=== PATIENT | female | born 1970 | race Caucasian/White ===

== ENCOUNTER 2017-07-06 17:22 | Emergency (ER) | payer BC ==
[~2017-07-06] VITALS: Ht 160 cm; Wt 90.7 kg
[~2017-07-06 17:22] MED LIST: CLINDAMYCIN HC300 MG PO; MOBIC7.5 MG PO; NEURONTIN100 MG PO; NKHM PO; PERCOCET 325 MG1 TA2 PO; PERCOCET 325 MG1 TA5 PO; TRAMADOL HCL50 MG PO
[2017-07-06] MEDS ORDERED: VITAMIN D5000 UNIT PO (17:32)
[2017-07-06] MEDS ORDERED: OXYBUTYNIN5 MG PO (17:32)
[2017-07-06] MEDS ORDERED: CLINDAMYCIN150 MG PO (17:39)
[2017-07-06] MEDS ORDERED: NAPROSYN500 MG PO (17:39)
== END 2017-07-06 18:51 | disposition home or self-care (01) ==
LOC: ED 17:22
DX: S61.432A Puncture wound without foreign body of left hand, initial encounter (principal); S60.222A Contusion of left hand, initial encounter; R03.0 Elevated blood-pressure reading, without diagnosis of hypertension; F10.10 Alcohol abuse, uncomplicated; Z79.899 Other long term (current) drug therapy; Y99.8 Other external cause status; Z98.51 Tubal ligation status; Z88.0 Allergy status to penicillin; Z88.2 Allergy status to sulfonamides; X58.XXXA Exposure to other specified factors, initial encounter; Y93.89 Activity, other specified; Y92.89 Other specified places as the place of occurrence of the external cause

== ENCOUNTER → 2017-12-06 | Outpatient (CLI) | payer BC ==
[~2017-12-06] MED LIST changes: +CLINDAMYCIN150 MG PO; +NAPROSYN500 MG PO; +OXYBUTYNIN5 MG PO; +VITAMIN D5000 UNIT PO
== END | disposition home or self-care (01) ==
LOC: MAMMO 02:50
DX: Z12.31 Encounter for screening mammogram for malignant neoplasm of breast (principal)

== ENCOUNTER 2018-02-09 13:30 | Emergency (ER) | payer BC ==
[~2018-02-09] VITALS: Wt 98.4 kg
[~2018-02-09 13:30] MED LIST changes: +PRILOSEC20 M1 PO
[2018-02-09] MEDS ORDERED: IBU800 MG PO (15:11)
== END 2018-02-09 14:42 | disposition home or self-care (01) ==
LOC: ED 13:30
DX: S93.402A Sprain of unspecified ligament of left ankle, initial encounter (principal); E66.9 Obesity, unspecified; Z98.51 Tubal ligation status; Z79.899 Other long term (current) drug therapy; Z88.0 Allergy status to penicillin; Z88.2 Allergy status to sulfonamides; W17.2XXA Fall into hole, initial encounter; Y93.89 Activity, other specified; Y92.89 Other specified places as the place of occurrence of the external cause; Y99.9 Unspecified external cause status

== ENCOUNTER → 2018-08-29 | Outpatient (CLI) | payer BC ==
[~2018-08-29] MED LIST changes: +DETROL LA2 MG PO; +IBU800 MG PO; +LEVAQUIN750 M1 PO; +PROTONIX40 MG PO; +TAMIFLU 75MG CA75 MG PO
== END | disposition home or self-care (01) ==
LOC: RAD 09:34
DX: M25.612 Stiffness of left shoulder, not elsewhere classified (principal); R53.83 Other fatigue; R11.0 Nausea; R19.7 Diarrhea, unspecified

== ENCOUNTER → 2018-09-16 | Outpatient (CLI) | payer BC | END | disposition home or self-care (01) | LOC: NM 09-11 10:00 | DX: M25.512 Pain in left shoulder (principal); M85.88 Other specified disorders of bone density and structure, other site ==

== ENCOUNTER → 2019-03-21 | Outpatient (CLI) | payer BC | END | disposition home or self-care (01) | LOC: RAD 07:39 | DX: K21.9 Gastro-esophageal reflux disease without esophagitis (principal) ==

== ENCOUNTER → 2020-05-10 | Outpatient (CLI) | payer BC | END | disposition home or self-care (01) | LOC: MAMMO 09:07 | PROVIDERS: ATTEND Nurse Practitioner Family | DX: Z12.31 Encounter for screening mammogram for malignant neoplasm of breast (principal) ==

== ENCOUNTER → 2021-01-24 | Outpatient (CLI) | payer OTHER | END | disposition home or self-care (01) | LOC: US 06:49 | PROVIDERS: ATTEND Nurse Practitioner Family | DX: K76.0 Fatty (change of) liver, not elsewhere classified (principal); K21.9 Gastro-esophageal reflux disease without esophagitis; J30.9 Allergic rhinitis, unspecified; R73.01 Impaired fasting glucose; E78.5 Hyperlipidemia, unspecified; K90.49 Malabsorption due to intolerance, not elsewhere classified ==

== ENCOUNTER → 2021-03-21 | Day surgery (SDC) | payer OTHER ==
[~2021-03-21] VITALS: Ht 157.4 cm; Wt 99.8 kg
[~2021-03-21] MED LIST changes: +COLACE100 MG PO; +CRESTOR10 M1 PO; +DAILY VALUE1 EACH PO; +METFORMIN HYDR500 MG PO; +PERCOCET 5-3251 EACH PO; +SINGULAIR10 M1 PO; +TOPCARE ALLERGY10 MG PO; +VITAMIN D3125 MC1 PO; +ZOFRAN4 MG PO
[2021-03-21 06:48] VITALS: BP 137/93
[2021-03-21 08:23] VITALS: BP 124/83
[2021-03-21 08:40] VITALS: BP 154/85
[2021-03-21 08:57] VITALS: BP 153/83
[2021-03-21 09:11] VITALS: BP 150/82
[2021-03-21 09:33] VITALS: BP 149/79
== END | disposition home or self-care (01) ==
LOC: SDC 03-17 13:15
PROVIDERS: ATTEND Surgery
DX: K80.10 Calculus of gallbladder with chronic cholecystitis without obstruction (principal); E11.9 Type 2 diabetes mellitus without complications; Z88.0 Allergy status to penicillin; Z88.2 Allergy status to sulfonamides; K21.9 Gastro-esophageal reflux disease without esophagitis; G47.33 Obstructive sleep apnea (adult) (pediatric); Z99.89 Dependence on other enabling machines and devices

== ENCOUNTER → 2021-05-16 | Outpatient (CLI) | payer OTHER | END | disposition home or self-care (01) | LOC: MAMMO 07:48 | PROVIDERS: ATTEND Nurse Practitioner Family | DX: Z12.31 Encounter for screening mammogram for malignant neoplasm of breast (principal) ==

== ENCOUNTER → 2021-05-23 | Outpatient (CLI) | payer OTHER | END | disposition home or self-care (01) | LOC: RAD 17:08 | PROVIDERS: ATTEND Nurse Practitioner Family | DX: M25.511 Pain in right shoulder (principal) ==

== ENCOUNTER → 2021-08-31 | Outpatient (CLI) | payer OTHER | END | disposition home or self-care (01) | LOC: MRI 14:00 | PROVIDERS: ATTEND Nurse Practitioner Family | DX: M50.10 Cervical disc disorder with radiculopathy, unspecified cervical region (principal); M48.02 Spinal stenosis, cervical region; R20.0 Anesthesia of skin; M25.511 Pain in right shoulder ==

== ENCOUNTER → 2022-02-17 | Outpatient (CLI) | payer OTHER ==
[2022-02-17 10:26] LABS: BASO # 0.1 10*3/uL (0.0-0.1); BASO % 0.8 % (0.0-1.0); EOS # 0.1 10*3/uL (0.0-0.4); EOS % 2.2 % (1.0-4.0); HEMATOCRIT 43.5 % (37.0-47.0); LYMPH # 1.9 10*3/uL (1.3-4.4); LYMPH % 32.2 % (27.0-41.0); MEAN CORPUSCULAR HGB CONC 34.5 g/dl (33.0-37.0); MEAN PLATELET VOLUME 9.3 fl (9.6-12.3); MONO # 0.6 10*3/uL (0.1-1.0); MONO % 9.1 % (3.0-9.0); NEUT # 3.3 10*3/uL (2.3-7.9); NEUT % 55.4 % (47.0-73.0); PLATELET COUNT AUTOMATED 288 10*3/uL (130-400); RED CELL DISTRI WIDTH 12.1 % (0-14.5)
[2022-02-17 10:50] LABS: ALKALINE PHOSPHATASE 83 U/L (45-117); BUN 16 mg/dl (7-24); CHLORIDE 108 mmol/L (98-107); CHOLESTEROL 120 mg/dL (<200); CREATININE 0.77 mg/dL (0.55-1.02); LDL CHOLESTEROL 62 mg/dL (9-159); SGOT/AST 20 IU/L (3-35); SGPT/ALT 45 U/L (12-78); SODIUM 142 mmol/L (136-145); TOTAL PROTEIN 7.1 gm/dL (6.4-8.2); TRIGLYCERIDES 68 mg/dl (<150)
== END | disposition home or self-care (01) ==
LOC: LAB 10:03
PROVIDERS: ATTEND Nurse Practitioner Family
DX: K21.9 Gastro-esophageal reflux disease without esophagitis (principal); R73.01 Impaired fasting glucose; J30.2 Other seasonal allergic rhinitis; L25.9 Unspecified contact dermatitis, unspecified cause

== ENCOUNTER → 2022-04-19 | Outpatient (CLI) | payer OTHER ==
[2022-04-19 10:37] LABS: ALKALINE PHOSPHATASE 81 U/L (45-117); SGOT/AST 14 IU/L (3-35); SGPT/ALT 28 U/L (12-78); TOTAL PROTEIN 7.1 gm/dL (6.4-8.2)
== END | disposition home or self-care (01) ==
LOC: LAB 09:26
PROVIDERS: ATTEND Nurse Practitioner Family
DX: D36.10 Benign neoplasm of peripheral nerves and autonomic nervous system, unspecified (principal); B35.1 Tinea unguium

== ENCOUNTER → 2022-05-03 | Outpatient (CLI) | payer OTHER ==
[2022-05-03 13:39] LABS: SGOT/AST 19 IU/L (3-35); SGPT/ALT 40 U/L (12-78); TOTAL PROTEIN 7.4 gm/dL (6.4-8.2)
[2022-05-03 13:42] LABS: ALKALINE PHOSPHATASE 87 U/L (45-117)
== END ==
LOC: LAB 00:12
PROVIDERS: ATTEND Nurse Practitioner Family
DX: B35.1 Tinea unguium (principal); D36.10 Benign neoplasm of peripheral nerves and autonomic nervous system, unspecified

== ENCOUNTER → 2022-08-18 | Outpatient (CLI) | payer OTHER ==
[2022-08-18 10:27] LABS: BASO % 0.7 % (0.0-1.0); EOS # 0.1 10*3/uL (0.0-0.4); EOS % 2.4 % (1.0-4.0); HEMATOCRIT 43.5 % (37.0-47.0); LYMPH # 1.8 10*3/uL (1.3-4.4); MEAN CELL VOLUME 90.2 fl (81.0-99.0); MEAN CORPUSCULAR HGB 29.9 pg (27.0-31.0); MEAN CORPUSCULAR HGB CONC 33.1 g/dl (33.0-37.0); MEAN PLATELET VOLUME 9.5 fl (9.6-12.3); MONO # 0.5 10*3/uL (0.1-1.0); MONO % 8.1 % (3.0-9.0); NEUT # 3.4 10*3/uL (2.3-7.9); NEUT % 57.6 % (47.0-73.0); PLATELET COUNT AUTOMATED 248 10*3/uL (130-400); RED BLOOD COUNT 4.82 10*6/uL (4.10-5.10); RED CELL DISTRI WIDTH 12.6 % (0-14.5); WHITE BLOOD COUNT 5.9 10*3/uL (4.8-10.8)
[2022-08-18 10:44] LABS: ALKALINE PHOSPHATASE 85 U/L (46-116); BUN 14 mg/dl (9-23); CHLORIDE 108 mmol/L (98-107); CHOLESTEROL 128 mg/dL (<200); LDL CHOLESTEROL 77 mg/dL (9-159); POTASSIUM 3.9 mmol/L (3.4-5.1); SGPT/ALT 23 U/L (10-49); TOTAL PROTEIN 6.6 gm/dL (6.0-8.0); TRIGLYCERIDES 49 mg/dl (<150)
== END | disposition home or self-care (01) ==
LOC: LAB 08:40
PROVIDERS: ATTEND Nurse Practitioner Family
DX: G47.33 Obstructive sleep apnea (adult) (pediatric) (principal); E66.09 Other obesity due to excess calories

== ENCOUNTER → 2022-11-10 | Outpatient (CLI) | payer OTHER ==
[2022-11-10 08:02] LABS: BASO # 0.1 10*3/uL (0.0-0.1); BASO % 0.8 % (0.0-1.0); EOS # 0.1 10*3/uL (0.0-0.4); EOS % 2.2 % (1.0-4.0); HEMATOCRIT 43.2 % (37.0-47.0); LYMPH # 1.9 10*3/uL (1.3-4.4); LYMPH % 29.5 % (27.0-41.0); MEAN CELL VOLUME 89.4 fl (81.0-99.0); MEAN CORPUSCULAR HGB 30.6 pg (27.0-31.0); MEAN CORPUSCULAR HGB CONC 34.3 g/dl (33.0-37.0); MEAN PLATELET VOLUME 9.1 fl (9.6-12.3); MONO # 0.6 10*3/uL (0.1-1.0); NEUT # 3.8 10*3/uL (2.3-7.9); PLATELET COUNT AUTOMATED 274 10*3/uL (130-400); RED BLOOD COUNT 4.83 10*6/uL (4.10-5.10); RED CELL DISTRI WIDTH 12.5 % (0-14.5); WHITE BLOOD COUNT 6.5 10*3/uL (4.8-10.8)
[2022-11-10 08:28] LABS: ALKALINE PHOSPHATASE 102 U/L (46-116); BUN 11 mg/dl (9-23); CHLORIDE 109 mmol/L (98-107); CHOLESTEROL 129 mg/dL (<200); LDL CHOLESTEROL 63 mg/dL (9-159); POTASSIUM 4.2 mmol/L (3.4-5.1); SGPT/ALT 44 U/L (10-49); TOTAL PROTEIN 6.7 gm/dL (6.0-8.0); TRIGLYCERIDES 137 mg/dl (<150)
== END | disposition home or self-care (01) ==
LOC: LAB 07:30
PROVIDERS: ATTEND Nurse Practitioner Family
DX: E78.5 Hyperlipidemia, unspecified (principal); B35.1 Tinea unguium; R73.01 Impaired fasting glucose; K21.9 Gastro-esophageal reflux disease without esophagitis

== ENCOUNTER → 2023-02-16 | Outpatient (CLI) | payer OTHER ==
[2023-02-16 09:05] LABS: BASO # 0.1 10*3/uL (0.0-0.1); BASO % 0.9 % (0.0-1.0); EOS # 0.2 10*3/uL (0.0-0.4); EOS % 3.1 % (1.0-4.0); HEMATOCRIT 44.2 % (37.0-47.0); LYMPH # 1.6 10*3/uL (1.3-4.4); LYMPH % 28.6 % (27.0-41.0); MEAN CELL VOLUME 89.3 fl (81.0-99.0); MEAN CORPUSCULAR HGB 30.7 pg (27.0-31.0); MEAN CORPUSCULAR HGB CONC 34.4 g/dl (33.0-37.0); MEAN PLATELET VOLUME 9.5 fl (9.6-12.3); MONO # 0.4 10*3/uL (0.1-1.0); MONO % 7.3 % (3.0-9.0); NEUT # 3.3 10*3/uL (2.3-7.9); NEUT % 59.7 % (47.0-73.0); PLATELET COUNT AUTOMATED 240 10*3/uL (130-400); RED BLOOD COUNT 4.95 10*6/uL (4.10-5.10); RED CELL DISTRI WIDTH 12.5 % (0-14.5); WHITE BLOOD COUNT 5.5 10*3/uL (4.8-10.8)
[2023-02-16 09:31] LABS: ALKALINE PHOSPHATASE 90 U/L (46-116); BUN 9 mg/dl (9-23); CHLORIDE 107 mmol/L (98-107); CHOLESTEROL 142 mg/dL (<200); LDL CHOLESTEROL 81 mg/dL (9-159); POTASSIUM 4.3 mmol/L (3.4-5.1); SGPT/ALT 34 U/L (10-49); TOTAL PROTEIN 6.6 gm/dL (6.0-8.0); TRIGLYCERIDES 78 mg/dl (<150)
== END | disposition home or self-care (01) ==
LOC: LAB 07:59
PROVIDERS: ATTEND Nurse Practitioner Family
DX: K21.9 Gastro-esophageal reflux disease without esophagitis (principal); R73.01 Impaired fasting glucose; E78.5 Hyperlipidemia, unspecified; B35.1 Tinea unguium; K91.1 Postgastric surgery syndromes; Z79.899 Other long term (current) drug therapy

== ENCOUNTER → 2023-03-07 | Outpatient (CLI) | payer OTHER | END | disposition home or self-care (01) | LOC: RAD 13:56 | PROVIDERS: ATTEND Nurse Practitioner Family | DX: M47.813 Spondylosis without myelopathy or radiculopathy, cervicothoracic region (principal); G95.89 Other specified diseases of spinal cord; R05.1 Acute cough; R09.89 Other specified symptoms and signs involving the circulatory and respiratory systems ==

== ENCOUNTER → 2023-03-22 | Outpatient (CLI) | payer OTHER | END | disposition home or self-care (01) | LOC: MAMMO 07:19 | PROVIDERS: ATTEND Nurse Practitioner Family | DX: Z12.31 Encounter for screening mammogram for malignant neoplasm of breast (principal) ==

== ENCOUNTER → 2023-06-01 | Outpatient (CLI) | payer OTHER ==
[2023-06-01 09:18] LABS: URINE CREATININE RANDOM 100.64 mg/dL
[2023-06-01 09:23] LABS: BASO # 0.1 10*3/uL (0.0-0.1); BASO % 0.9 % (0.0-1.0); EOS # 0.1 10*3/uL (0.0-0.4); HEMATOCRIT 43.5 % (37.0-47.0); LYMPH # 1.7 10*3/uL (1.3-4.4); LYMPH % 30.8 % (27.0-41.0); MEAN CELL VOLUME 88.2 fl (81.0-99.0); MEAN CORPUSCULAR HGB 30.8 pg (27.0-31.0); MEAN CORPUSCULAR HGB CONC 34.9 g/dl (33.0-37.0); MEAN PLATELET VOLUME 9.4 fl (9.6-12.3); MONO # 0.4 10*3/uL (0.1-1.0); MONO % 7.9 % (3.0-9.0); NEUT # 3.1 10*3/uL (2.3-7.9); NEUT % 57.1 % (47.0-73.0); PLATELET COUNT AUTOMATED 274 10*3/uL (130-400); RED BLOOD COUNT 4.93 10*6/uL (4.10-5.10); RED CELL DISTRI WIDTH 12.2 % (0-14.5); WHITE BLOOD COUNT 5.5 10*3/uL (4.8-10.8)
[2023-06-01 09:59] LABS: ALKALINE PHOSPHATASE 88 U/L (46-116); BUN 14 mg/dl (9-23); CHLORIDE 108 mmol/L (98-107); CHOLESTEROL 128 mg/dL (<200); LDL CHOLESTEROL 71 mg/dL (9-159); SGPT/ALT 33 U/L (5-49); TOTAL PROTEIN 6.7 gm/dL (6.0-8.0); TRIGLYCERIDES 73 mg/dl (<150)
== END | disposition home or self-care (01) ==
LOC: LAB 08:38
PROVIDERS: ATTEND Nurse Practitioner Family
DX: Z12.31 Encounter for screening mammogram for malignant neoplasm of breast (principal); K21.9 Gastro-esophageal reflux disease without esophagitis; R73.01 Impaired fasting glucose; E78.5 Hyperlipidemia, unspecified; Z80.0 Family history of malignant neoplasm of digestive organs; Z80.1 Family history of malignant neoplasm of trachea, bronchus and lung

== ENCOUNTER → 2023-10-01 | Outpatient (CLI) | payer OTHER ==
[2023-10-01 10:33] LABS: BASO # 0.1 10*3/uL (0.0-0.1); BASO % 1.1 % (0.0-1.0); EOS # 0.2 10*3/uL (0.0-0.4); EOS % 3.3 % (1.0-4.0); HEMATOCRIT 44.9 % (37.0-47.0); LYMPH % 31.8 % (27.0-41.0); MEAN CELL VOLUME 89.1 fl (81.0-99.0); MEAN CORPUSCULAR HGB 30.4 pg (27.0-31.0); MEAN CORPUSCULAR HGB CONC 34.1 g/dl (33.0-37.0); MEAN PLATELET VOLUME 9.2 fl (9.6-12.3); MONO # 0.5 10*3/uL (0.1-1.0); MONO % 7.4 % (3.0-9.0); NEUT # 3.6 10*3/uL (2.3-7.9); NEUT % 56.1 % (47.0-73.0); PLATELET COUNT AUTOMATED 261 10*3/uL (130-400); RED BLOOD COUNT 5.04 10*6/uL (4.10-5.10); RED CELL DISTRI WIDTH 12.4 % (0-14.5); WHITE BLOOD COUNT 6.3 10*3/uL (4.8-10.8)
[2023-10-01 11:00] LABS: ALKALINE PHOSPHATASE 80 U/L (46-116); BUN 11 mg/dl (9-23); CHLORIDE 108 mmol/L (98-107); CHOLESTEROL 131 mg/dL (<200); LDL CHOLESTEROL 72 mg/dL (9-159); POTASSIUM 3.8 mmol/L (3.4-5.1); SGPT/ALT 32 U/L (5-49); TOTAL PROTEIN 6.7 gm/dL (6.0-8.0); TRIGLYCERIDES 70 mg/dl (<150)
== END | disposition home or self-care (01) ==
LOC: LAB 10:15
PROVIDERS: ATTEND Nurse Practitioner Family
DX: E78.5 Hyperlipidemia, unspecified (principal); K21.9 Gastro-esophageal reflux disease without esophagitis; R73.01 Impaired fasting glucose; Z80.0 Family history of malignant neoplasm of digestive organs

== ENCOUNTER → 2024-01-17 | Outpatient (CLI) | payer OTHER ==
[2024-01-17 11:43] LABS: BASO % 0.7 % (0.0-1.0); EOS # 0.1 10*3/uL (0.0-0.4); EOS % 2.3 % (1.0-4.0); HEMATOCRIT 44.3 % (37.0-47.0); LYMPH % 35.6 % (27.0-41.0); MEAN CELL VOLUME 90.6 fl (81.0-99.0); MEAN CORPUSCULAR HGB 30.5 pg (27.0-31.0); MEAN CORPUSCULAR HGB CONC 33.6 g/dl (33.0-37.0); MEAN PLATELET VOLUME 9.5 fl (9.6-12.3); MONO # 0.5 10*3/uL (0.1-1.0); MONO % 8.8 % (3.0-9.0); NEUT # 2.9 10*3/uL (2.3-7.9); NEUT % 52.4 % (47.0-73.0); PLATELET COUNT AUTOMATED 253 10*3/uL (130-400); RED BLOOD COUNT 4.89 10*6/uL (4.10-5.10); RED CELL DISTRI WIDTH 12.5 % (0-14.5); WHITE BLOOD COUNT 5.5 10*3/uL (4.8-10.8)
[2024-01-17 12:07] LABS: ALKALINE PHOSPHATASE 90 U/L (46-116); BUN 12 mg/dl (9-23); CHLORIDE 108 mmol/L (98-107); CHOLESTEROL 115 mg/dL (<200); LDL CHOLESTEROL 61 mg/dL (9-159); POTASSIUM 3.8 mmol/L (3.4-5.1); SGPT/ALT 29 U/L (5-49); TOTAL PROTEIN 6.8 gm/dL (6.0-8.0); TRIGLYCERIDES 80 mg/dl (<150)
== END | disposition home or self-care (01) ==
LOC: LAB 11:13
PROVIDERS: ATTEND Nurse Practitioner Family
DX: T88.7XXA Unspecified adverse effect of drug or medicament, initial encounter (principal); R63.5 Abnormal weight gain; R73.09 Other abnormal glucose; X58.XXXA Exposure to other specified factors, initial encounter